=== PATIENT | male | born 1965 | race Caucasian/White ===

== ENCOUNTER 2022-01-17 05:59 | Inpatient (IN) | payer MEDICAID ==
[~2022-01-17] VITALS: Ht 170.2 cm; Wt 95.5 kg
[2022-01-17] MEDS ORDERED: ringers solution, lacted 1,000 ML IV ONE (06:45)
[2022-01-17] MEDS ORDERED: LORazepam 2 mg/ml vial IV ONE (06:45)
[2022-01-17] MEDS ORDERED: aspirin 81mg tab.chew PO ONE (06:45)
[2022-01-17 06:56] LABS: BASOPHILS # (AUTO) 0.1 X10'3 (0-0.2); BASOPHILS % (AUTO) 0.5 % (0-1); EOSINOPHILS # (AUTO) 0.1 X10'3 (0-0.9); EOSINOPHILS % (AUTO) 1.1 % (0-6); HEMATOCRIT 37.7 % (42.0-52.0); HEMOGLOBIN 12.6 g/dl (14.0-17.9); LYMPHOCYTES # (AUTO) 1.6 X10'3 (1.1-4.8); LYMPHOCYTES % (AUTO) 12.2 % (21-51); MEAN CORPUSCULAR HEMOGLOBIN 28.3 PG (27.0-31.0); MEAN CORPUSCULAR HGB CONC 33.3 g/dL (33.0-36.5); MEAN CORPUSCULAR VOLUME 84.9 FL (78-98); MEAN PLATELET VOLUME 7.9 FL (7.4-10.4); MONOCYTES # (AUTO) 1.2 X10'3 (0-0.9); MONOCYTES % (AUTO) 8.8 % (2-12); NEUTROPHILS # (AUTO) 10.2 X10'3 (1.8-7.7); NEUTROPHILS % (AUTO) 77.4 % (42-75); PLATELET COUNT 290 X10'3 (140-440); RED BLOOD COUNT 4.44 X10'6 (4.70-6.10); RED CELL DISTRIBUTION WIDTH 13.9 % (11.5-14.5); WHITE BLOOD COUNT 13.1 X10'3 (4.5-11.0)
--- NOTE | 2022-01-17 07:00 | NUR ---
rt at bedside. pt placed on cpap
--- NOTE | 2022-01-17 07:09 | NUR ---
Per Child, CPAP ordered d/t pt "feeling like his throat is closing and he panics." Upon arrival, pt on 3LPM with an SpO2 of 94%. Pt lethargic but easily awakens. Per Dr Mackenzie, no need for ABG. Pt placed on CPAP of 8 cmH2O with 25% FiO2. RR ranges from high 20's to 30's. SpO2 95%. Tidal volumes vary from 200's to 600's at times. Pt seems to be tolerating settings fine. Major leak d/t pate on pt. Mask fitted as best as possible. aware. Addendum: 01/17/22 at 0715 by Meenu Fatima RT Amended: Links added.
[2022-01-17 07:11] LABS: ALANINE AMINOTRANSFERASE 15 U/L (12-78); ALBUMIN 3.1 G/DL (3.4-5.0); ALBUMIN/GLOBULIN RATIO 0.7 (1.1-1.5); ALKALINE PHOSPHATASE 109 IU/L (46-116); ANION GAP 12 (8-16); ASPARTATE AMINO TRANSFERASE 19 U/L (10-37); BILIRUBIN,TOTAL 0.6 MG/DL (0.1-1.0); BLOOD UREA NITROGEN 14 MG/DL (7-18); BUN/CREATININE RATIO 14.1 (5.4-32.0); CHLORIDE 105 MMOL/L (99-107); CREATININE 0.99 MG/DL (0.60-1.10); GLUCOSE 104 MG/DL (70-104); POTASSIUM 3.8 MMOL/L (3.5-5.1); SODIUM 138 MMOL/L (135-145); TOTAL CARBON DIOXIDE 20.9 MMOL/L (24-32); TOTAL PROTEIN 7.6 G/DL (6.4-8.2); eGFR 78 ML/MIN
[2022-01-17 07:13] LABS: MAGNESIUM 1.9 MG/DL (1.5-2.4)
--- NOTE | 2022-01-17 08:30 | NUR ---
pt to ct. placed on 6L , sat 97%.
[2022-01-17] MEDS ORDERED: ipratropium/albuterol 3ml nebule NEB ONE (08:50)
--- NOTE | 2022-01-17 09:00 | NUR ---
RT at bedside.
[2022-01-17] MEDS ORDERED: furosemide 10 MG/1 ML 10ml inj IV ONE (10:10)
[2022-01-17] MEDS ORDERED: cefTRIAXone 1g/NS 100ml IVPB 100 ML IV ONE (10:10)
--- NOTE | 2022-01-17 10:23 | NUR ---
friend, joana [phone]. please call for questions/ride home.
--- NOTE | 2022-01-17 10:35 | NUR ---
dr. barragan at bedside.
[2022-01-17] MEDS ORDERED: magnesium 4gm in 100ml NS 100 ML IV PRN (10:50)
[2022-01-17] MEDS ORDERED: acetaminophen 325mg tablet PO PRN ×2 (10:50)
[2022-01-17] MEDS ORDERED: POTASSIUM BICARB 20meq eff tab 20 MEQ TABLET.EFF PO PRN ×2 (10:50)
[2022-01-17] MEDS ORDERED: magnesium hydroxide 30ml (MOM) UD suspension PO PRN (10:50)
[2022-01-17] MEDS ORDERED: HYDROcodone/acetaminophen 10/325mg tab PO PRN (10:50)
[2022-01-17] MEDS ORDERED: HYDROcodone/acetaminophen 5mg/325mg tablet PO PRN (10:50)
[2022-01-17] MEDS ORDERED: potassium CL 10mEq/100ml bag 100 ML IV PRN (10:50)
[2022-01-17] MEDS ORDERED: nitroGLYCERIN 0.4mg SUBLingual tab SL PRN (10:50)
[2022-01-17] MEDS ORDERED: morphine 2 MG/ML inj. syringe IV PRN ×2 (10:50)
[2022-01-17] MEDS ORDERED: normal saline 1000ml 1,000 ML IV SCH (10:50)
[2022-01-17] MEDS ORDERED: metoprolol tartrate 1mg/ml inj IV PRN (10:50)
[2022-01-17] MEDS ORDERED: aminophylline 250mg/10ml inj. IV PRN (10:50)
[2022-01-17] MEDS ORDERED: magnesium Cl slow-release 64mg tablet PO PRN (10:50)
[2022-01-17] MEDS ORDERED: magnesium 2GM in 50ml NS 50 ML IV PRN (10:50)
[2022-01-17] MEDS ORDERED: regadenoson 0.4mg/5ml syringe IV PRN (10:50)
[2022-01-17] MEDS ORDERED: ondansetron/PF 4mg/2ml inj IV PRN (10:50)
[2022-01-17 11:09] LABS: URINE AMPHETAMINE SCREEN POSITIVE (Neg); URINE BARBITUATE SCREEN NEGATIVE (Neg); URINE BENZODIAZEPINES SCREEN NEGATIVE (Neg); URINE CANNABINOID SCREEN POSITIVE (Neg); URINE COCAINE SCREEN NEGATIVE (Neg); URINE METHADONE SCREEN NEGATIVE (Neg); URINE OPIATE SCREEN NEGATIVE (Neg); URINE PHENCYCLIDINE SCREEN NEGATIVE (Neg)
[2022-01-17] MEDS ORDERED: albuterol 2.5 MG/3 ML nebule NEB SCH (12:00)
--- NOTE | 2022-01-17 12:06 | NUR ---
cardiac stress test on hold until evaluated by excel vba developer
[2022-01-17 12:08] LABS: ABG BASE EXCESS -2.8 mmol/L (-2.0-2.0); ABG HCO3 20.3 mmol/L (22.0-26.0); ABG PCO2 (T) 30.3 mmHg (35.0-48.0); ABG PO2 (T) 67.2 mmHg (75.0-100.0); ALLEN'S TEST POSITIVE; FCOHb 1.3 % (0.0-3.9); FLOW 3 L/min; FMetHb 0.1 % (0.0-1.5); FO2Hb 92.7 % (94-97); TOTAL HEMOGLOBIN 13.1 G/dl (14.0-18.0)
[2022-01-17 12:41] VITALS: BP 142/77
[2022-01-17 15:00] VITALS: BP 145/82
[2022-01-17] MEDS: albuterol 2.5 MG/3 ML nebule NEB SCH (16:25)
[2022-01-17 18:00] VITALS: BP 150/81
--- NOTE | 2022-01-17 18:45 | NUR ---
Unable to obtain admission information. Patient irritable and sleeping for majority of time on the floor. Patient give short answer and then eventually becomes agitated and wants to leave.
[2022-01-17] MEDS: methylPREDNISolone sod succ 125mg/2ml vial IV SCH (19:25)
[2022-01-17] MEDS: heparin, porcine 5000 units/ml vial SQ SCH (19:29)
[2022-01-17] MEDS ORDERED: METO-384 PO (19:48)
[2022-01-17] MEDS ORDERED: SACU1TAB PO (19:48)
[2022-01-17] MEDS ORDERED: ATOR-2 PO (19:48)
[2022-01-17] MEDS ORDERED: PANT20TA18 PO (19:48)
[2022-01-17] MEDS ORDERED: TICA90TA2 PO (19:48)
[2022-01-17] MEDS: K and/or MAG REPLACEMENT MC SCH (20:00)
[2022-01-17] MEDS ORDERED: temazepam 15mg capsule PO PRN (21:00)
--- NOTE | 2022-01-17 21:05 | NUR ---
Patient sitting up on the side of the bed with gown off, sweating, tachypenic and desating to the 80's. His O2 was off and I could hear audible wheezes, I put O2 back on and SpO2 back in the 90's. I notice he has a hx of ETOH but no withdrawl protocol in in place. I advised LOUISE Zhou the patient's primary nurse.
--- NOTE | 2022-01-17 21:19 | NUR ---
PAGER ID: [phone] MESSAGE: For patient in room 3012A, Best Sissy. pt just became super diaphoretic, shaky, freaking out, HR in the 120s. Denies any history of alcohol use per H&P, last alcohol use was 1 week ago. ok for [facility] protocol? RN # [id number]
[2022-01-17 22:00] VITALS: BP 136/80
[2022-01-18 02:00] VITALS: BP 145/77
[2022-01-18] MEDS: albuterol 2.5 MG/3 ML nebule NEB SCH ×3 (03:00→10:25)
[2022-01-18 06:00] VITALS: BP 133/85
[2022-01-18 06:10] LABS: BASOPHILS % (AUTO) 0.3 % (0-1); EOSINOPHILS % (AUTO) 0 % (0-6); HEMATOCRIT 43.1 % (42.0-52.0); HEMOGLOBIN 14.1 g/dl (14.0-17.9); LYMPHOCYTES # (AUTO) 0.6 X10'3 (1.1-4.8); LYMPHOCYTES % (AUTO) 6.7 % (21-51); MEAN CORPUSCULAR HEMOGLOBIN 27.7 PG (27.0-31.0); MEAN CORPUSCULAR HGB CONC 32.8 g/dL (33.0-36.5); MEAN CORPUSCULAR VOLUME 84.3 FL (78-98); MEAN PLATELET VOLUME 7.8 FL (7.4-10.4); MONOCYTES # (AUTO) 0.3 X10'3 (0-0.9); MONOCYTES % (AUTO) 3.6 % (2-12); NEUTROPHILS # (AUTO) 8.1 X10'3 (1.8-7.7); NEUTROPHILS % (AUTO) 89.4 % (42-75); PLATELET COUNT 300 X10'3 (140-440); RED BLOOD COUNT 5.11 X10'6 (4.70-6.10); RED CELL DISTRIBUTION WIDTH 14.3 % (11.5-14.5); WHITE BLOOD COUNT 9.1 X10'3 (4.5-11.0)
[2022-01-18 06:16] LABS: ALANINE AMINOTRANSFERASE 18 U/L (12-78); ALBUMIN 3.1 G/DL (3.4-5.0); ALBUMIN/GLOBULIN RATIO 0.6 (1.1-1.5); ALKALINE PHOSPHATASE 116 IU/L (46-116); ANION GAP 8 (8-16); ASPARTATE AMINO TRANSFERASE 18 U/L (10-37); BILIRUBIN,TOTAL 0.6 MG/DL (0.1-1.0); BLOOD UREA NITROGEN 14 MG/DL (7-18); BUN/CREATININE RATIO 15.9 (5.4-32.0); CHLORIDE 106 MMOL/L (99-107); CHOL/HDL RATIO 3.5 (0.00-4.99); CHOLESTEROL 111 MG/DL (0-200); CREATININE 0.88 MG/DL (0.60-1.10); GLUCOSE 152 MG/DL (70-104); HDL CHOLESTEROL 32 MG/DL (35-60); LDL CHOLESTEROL 56 MG/DL (50-100); POTASSIUM 3.7 MMOL/L (3.5-5.1); SODIUM 139 MMOL/L (135-145); TOTAL CARBON DIOXIDE 24.6 MMOL/L (24-32); TOTAL PROTEIN 8.4 G/DL (6.4-8.2); TRIGLYCERIDES 62 MG/DL (20-135); eGFR 90 ML/MIN
--- NOTE | 2022-01-18 06:16 | NUR ---
Patient in room U 3012. I have received report from Brigitte GIL and had the opportunity to ask questions and assume patient care. Addendum: 01/18/22 at 0618 by Chantale Danielle RN Received report from Winnie GIL not Brigitte GIL.
[2022-01-18] MEDS: K and/or MAG REPLACEMENT MC SCH (08:00)
[2022-01-18] MEDS ORDERED: CefTRIAXone 2gm/NS 100ml IVPB 100 ML IV SCH (08:00)
[2022-01-18] MEDS: methylPREDNISolone sod succ 125mg/2ml vial IV SCH (08:18)
[2022-01-18] MEDS: heparin, porcine 5000 units/ml vial SQ SCH (08:21)
[2022-01-18] MEDS ORDERED: azithromycin 250mg tablet PO SCH (09:25)
--- NOTE | 2022-01-18 10:24 | NUR ---
Paged Dr Dukes regarding patient's plan of care. Patient agitated and telling Physical Therapy staff that he will leave AMA. Patient has requested to eat and know plan of care since [facility] has been cancelled.
--- NOTE | 2022-01-18 11:00 | NUR ---
Signed AMA form. IV right hand removed. Tele box removed. Explained to patient risk of him leaving the hospital. Patient did not have any questions or concerns that needed to be addressed. Left hospital stating his friend was going to come pick him up.
== END 2022-01-18 11:18 | disposition left against medical advice (07) | DRG 139 ==
LOC: ER 06:00 → ED HOLD 10:55 → PCU 3S 12:15
PROVIDERS: ADMIT Internal Medicine; ATTEND Internal Medicine
PROC: 5A09357 Assistance with Respiratory Ventilation, Less than 24 Consecutive Hours, Continuous Positive Airway Pressure (ICD-10-PCS; principal; 2022-01-17)
DX: J18.9 Pneumonia, unspecified organism (principal); J96.90 Respiratory failure, unspecified, unspecified whether with hypoxia or hypercapnia; I25.10 Atherosclerotic heart disease of native coronary artery without angina pectoris; E78.00 Pure hypercholesterolemia, unspecified; Z53.29 Procedure and treatment not carried out because of patient's decision for other reasons; I10 Essential (primary) hypertension; E78.5 Hyperlipidemia, unspecified; F10.20 Alcohol dependence, uncomplicated; F12.90 Cannabis use, unspecified, uncomplicated; F15.20 Other stimulant dependence, uncomplicated; F17.210 Nicotine dependence, cigarettes, uncomplicated; I25.2 Old myocardial infarction; Z79.02 Long term (current) use of antithrombotics/antiplatelets; Z71.51 Drug abuse counseling and surveillance of drug abuser; Z71.41 Alcohol abuse counseling and surveillance of alcoholic; Z71.6 Tobacco abuse counseling
CPT/HCPCS: 36415; 36600; 70490; 71045; 80053; 80061; 80305; 82803; 83605; 83735; 84484; 85018; 85025; 87040; 87081; 93005; 93306; 94640; 94660; 94760; 96365; 96367; 96375; 97161; 97530; 99285; G0378; J0696; J1644; J1940; J2060; J2930; J7030; J7120